=== PATIENT | female | born 1980 | race Caucasian/White ===

== ENCOUNTER 2016-12-11 13:52 | Emergency (ER) | payer OTHER ==
[2016-12-11] MEDS ORDERED: BACLOFEN20 M1 PO (14:24)
[2016-12-11] MEDS ORDERED: MESTINON60 M1 PO (14:25)
[2016-12-11] MEDS ORDERED: AMBIEN5 M1 PO (14:25)
[2016-12-11] MEDS ORDERED: ROBINUL1 M1 PO (14:25)
[2016-12-11] MEDS ORDERED: VALIUM5 M1 PO (14:26)
[2016-12-11] MEDS ORDERED: DESVENLAFAXINE50 MG PO (14:32)
[2016-12-11] MEDS ORDERED: LAMICTAL25 M2 PO (14:33)
[2016-12-11] MEDS ORDERED: IVIG (14:33)
[2016-12-11] MEDS ORDERED: ZYRTEC10 M7 PO (14:34)
[2016-12-11] MEDS ORDERED: ZOFRAN4 M2 PO (14:34)
[2016-12-11] MEDS ORDERED: HYDROCODON-ACE1 EA16 PO (14:34)
[2016-12-11] MEDS ORDERED: IMITREX50 M2 PO (14:34)
[2016-12-11] MEDS ORDERED: CALCIUM CARBON500 M2 PO (14:35)
[2016-12-11] MEDS ORDERED: FLONASE ALLERG9.9 ML (14:35)
[2016-12-11] MEDS ORDERED: MULTIVITAMINS1 EAC7 PO (14:35)
[2016-12-11] MEDS ORDERED: VITAMIN D31000 UNI3 PO (14:36)
[2016-12-11] MEDS ORDERED: FISH OIL 11000 MG/CA PO (14:36)
[2016-12-11] MEDS ORDERED: PROBIOTIC1 EAC6 PO (14:37)
[2016-12-11] MEDS ORDERED: DIAZEPAM5 MG/1 M1 IM (15:06)
[2016-12-11 15:48] LABS: ANION GAP 10 mmol/L (0-20); BLOOD UREA NITROGEN 12 mg/dl (6-24); CALCIUM 8.8 mg/dl (8.5-10.5); CARBON DIOXIDE-VENOUS 25 mmol/L (22-32); CHLORIDE 108 mmol/l (96-110); CREATININE 0.98 mg/dl (0.50-1.10); GLUCOSE 109 mg/dL (70-110); POTASSIUM 4.2 mmol/L (3.7-5.1); SODIUM 139 mmol/L (135-145); eGFR VALUE FOR BLACK 87 mL/Min
== END 2016-12-11 16:17 ==
LOC: EDMED 13:52
PROVIDERS: Emergency Medicine
DX: G25.82 Stiff-man syndrome (principal); Z90.49 Acquired absence of other specified parts of digestive tract
CPT/HCPCS: J1885; J2300; J2405; J3360; J7030

== ENCOUNTER 2016-12-21 15:52 | Emergency (ER) | payer OTHER ==
[~2016-12-21 15:52] MED LIST: AMBIEN5 M1 PO; BACLOFEN20 M1 PO; CALCIUM CARBON500 M2 PO; DESVENLAFAXINE50 MG PO; DIAZEPAM5 MG/1 M1 IM; FISH OIL 11000 MG/CA PO; FLONASE ALLERG9.9 ML; HYDROCODON-ACE1 EA16 PO; IMITREX50 M2 PO; IVIG; LAMICTAL25 M2 PO; MESTINON60 M1 PO; MULTIVITAMINS1 EAC7 PO; PROBIOTIC1 EAC6 PO; ROBINUL1 M1 PO; VALIUM5 M1 PO; VITAMIN D31000 UNI3 PO; ZOFRAN4 M2 PO; ZYRTEC10 M7 PO
== END 2016-12-21 18:04 ==
LOC: EDMED 15:52
DX: G25.82 Stiff-man syndrome (principal); Z90.49 Acquired absence of other specified parts of digestive tract; Z90.710 Acquired absence of both cervix and uterus
CPT/HCPCS: J1885; J2300; J2405; J3360; J7030